=== PATIENT | male | born 1980 | race African-American/Black ===

== ENCOUNTER 2017-01-25 20:04 | Emergency (ER) | payer SELFPAY ==
[~2017-01-25 20:04] MED LIST: Z.0.NO CURRENT MEDS
[2017-01-25 20:07] VITALS: BP 137/82; PULSE 98; RESP 16; TEMP 96.7; O2SAT 98
== END 2017-01-25 20:25 | disposition left against medical advice (07) ==
LOC: NED 20:04
DX: R42 Dizziness and giddiness (principal)
CPT/HCPCS: 99281